=== PATIENT | male | born 1965 | race Two or more races ===

== ENCOUNTER 2019-08-24 22:16 | Emergency (ER) | payer OTHER ==
[~2019-08-24] VITALS: Ht 172.7 cm; Wt 72.6 kg
[2019-08-24] MEDS ORDERED: IBUPROFEN800 MG ORAL (22:24)
[2019-08-24] MEDS ORDERED: METFORMIN HCL500 M1 ORAL (22:24)
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
[2019-08-24] MEDS ORDERED: HYDROcodone/Acetamin 5/325 tab ORAL ONE (22:45)
[2019-08-24] MEDS ORDERED: HYDROCODON-ACE1 EA15 ORAL (23:14)
[2019-08-24] MEDS ORDERED: IBUPROFEN600 MG ORAL (23:14)
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
--- NOTE | 2019-08-24 23:40 | NUR ---
ER DISCHARGE NOTE: Patient is cleared to be discharged per ERMD, pt is aox4, on room air, with stable vital signs. pt was given dc and prescription instructions, pt was able to verbalize understanding, pt id band removed without complications. pt is able to ambulate with steady gait. pt took all belongings.
[2019-08-24 23:45] VITALS: BP 151/81
== END 2019-08-24 23:45 | disposition home or self-care (01) ==
LOC: EDBD 22:16 → EMR 22:35
DX: S16.1XXA Strain of muscle, fascia and tendon at neck level, initial encounter (principal); S39.012A Strain of muscle, fascia and tendon of lower back, initial encounter; E11.9 Type 2 diabetes mellitus without complications; I10 Essential (primary) hypertension; V49.49XA Driver injured in collision with other motor vehicles in traffic accident, initial encounter; Y92.410 Unspecified street and highway as the place of occurrence of the external cause
CPT/HCPCS: 82962; Z7502; 99283